=== PATIENT | female | born 1975 | race Caucasian/White ===

== ENCOUNTER 2018-04-12 14:52 | Emergency (ER) | payer SELFPAY ==
[2018-04-12 15:15] LABS: Bilirubin Small (Negative); Blood, Urine Moderate (Negative); Glucose, Urine (Dipstick) 250 mg/dL (Negative); Leukocyte Large (Negative); Nitrite Positive (Negative); Protein, Urine (Dipstick) > or equal to 300 mg/dL (Neg-Trace); pH, Urine 5.5 (5.0-9.0)
[2018-04-12 15:17] LABS: Clarity Hazy (Clear)
[2018-04-12 15:19] LABS: Specific Gravity, Urine 1.032 (1.002-1.036)
[2018-04-12 15:20] LABS: Bacteria/HPF Rare-Few HPF (None Seen); Pregnancy Test - Urine (BHCG) Negative (Negative); Pregu Control Background? CLEAR/WHITE (CLR/WHITE); Pregu Control Bar Appear? YES (CONTROL BAR); RBC/HPF 0-3 HPF (0-3); Specific Gravity 1.032 (1.002-1.036); Squamous Epithelial 0-3 HPF (0-3)
[2018-04-12] MEDS ORDERED: Nitrofurantoin Monohyd/M-Cryst 100 MG CAP ONE (15:41)
== END 2018-04-12 15:57 | disposition home or self-care (01) ==
LOC: MADERS 14:52
DX: N39.0 Urinary tract infection, site not specified (principal); J45.909 Unspecified asthma, uncomplicated; B20 Human immunodeficiency virus [HIV] disease; F17.210 Nicotine dependence, cigarettes, uncomplicated
CPT/HCPCS: 81003; 81015; 81025; 99283

== ENCOUNTER 2020-07-08 13:55 | Emergency (ER) | payer SELFPAY ==
[2020-07-08] MEDS ORDERED: Boostrix 0.5 ML (Tdap) VIAL ONE (14:42)
--- NOTE | 2020-07-08 14:50 | RAD ---
EXAM: 3 views of the right shoulder HISTORY: Shoulder pain after fall COMPARISON: None FINDINGS: There is no evidence of acute fracture or dislocation. No degenerative changes are present. No soft tissue swelling is seen. The visualized thorax is unremarkable. IMPRESSION: No evidence of acute osseous abnormality.
--- NOTE | 2020-07-08 14:52 | RAD ---
Exam:4 views right elbow HISTORY: Fall. Pain. Injury. COMPARISON: None FINDINGS: Preserved joint spaces. No fracture or malalignment. No joint effusion. IMPRESSION: No posttraumatic change.
--- NOTE | 2020-07-08 14:53 | RAD ---
EXAM: 3 views of the right hand COMPARISON: None HISTORY: Hand pain after fall FINDINGS: 3 views of the hand shows no evidence of acute fracture or dislocation. No degenerative nahum nges are seen. Mild index finger soft tissue swelling is present. IMPRESSION: No evidence of acute osseous abnormality.
== END 2020-07-08 15:03 | disposition home or self-care (01) ==
LOC: MADERS 13:55
DX: S60.221A Contusion of right hand, initial encounter (principal); S40.011A Contusion of right shoulder, initial encounter; E11.9 Type 2 diabetes mellitus without complications; J45.909 Unspecified asthma, uncomplicated; G62.9 Polyneuropathy, unspecified; F17.210 Nicotine dependence, cigarettes, uncomplicated; Z79.84 Long term (current) use of oral hypoglycemic drugs; Z79.899 Other long term (current) drug therapy; W17.89XA Other fall from one level to another, initial encounter
CPT/HCPCS: 90471; 90715